=== PATIENT | female | born 1960 | race Caucasian/White ===

== ENCOUNTER 2024-07-16 13:11 | Emergency (ER) | payer MEDICARE, BC ==
[~2024-07-16] VITALS: Ht 175.3 cm; Wt 65.0 kg
[2024-07-16] MEDS ORDERED: DiphenhydrAMINE HCL 50 MG/ML SDV IV STA (13:25)
[2024-07-16] MEDS ORDERED: methylPREDNISolone SODIUM SUCC 125 MG/2 ML SDV IV STA (13:25)
[2024-07-16] MEDS ORDERED: FAMOTIDINE 10MG/ML 2ML SDV IV STA (13:25)
[2024-07-16 13:42] VITALS: BP 149/77
[2024-07-16 13:45] VITALS: BP 154/75
[2024-07-16] MEDS ORDERED: AMOX/K CLAV875 M1 PO (13:59)
[2024-07-16 14:00] VITALS: BP 152/91
[2024-07-16 14:04] VITALS: BP 152/91
== END 2024-07-16 14:05 | disposition home or self-care (01) ==
LOC: ED 13:11
DX: T63.441A Toxic effect of venom of bees, accidental (unintentional), initial encounter (principal)
CPT/HCPCS: J1200